=== PATIENT | female | born 1940 | race Caucasian/White ===

== ENCOUNTER → 2016-03-10 | Outpatient (CLI) | payer MEDICARE, BC ==
[~2016-03-10] MED LIST: CALTRATE-600 W600 MG PO; ELMIRON 10100 MG/CA1 PO; FISH OIL1 IU PO; FOSAMAX 70MG TA70 MG PO
[2016-03-10 09:46] LABS: ALBUMIN 4.3 gm/dL (3.5-5.0); BILIRUBIN,TOTAL 0.7 mg/dL (0.0-1.0); TOTAL PROTEIN 7.5 gm/dL (6.4-8.2)
[2016-03-10 10:08] LABS: BILIRUBIN,DIRECT 0.4 mg/dL (0.0-0.4); CREATININE, serum 0.94 mg/dL (0.52-1.25)
== END ==
LOC: COL.LAB 09:03 → COL.RAD 09:03
PROVIDERS: Nurse Practitioner
DX: N30.21 Other chronic cystitis with hematuria (principal); R31.0 Gross hematuria
CPT/HCPCS: Q9967

== ENCOUNTER → 2016-07-06 | Outpatient (CLI) | payer MEDICARE, BC | LOC: MC.RAD 11:26 | DX: Z12.31 Encounter for screening mammogram for malignant neoplasm of breast (principal) ==

== ENCOUNTER 2017-08-13 10:08 | Emergency (ER) | payer MEDICARE, BC ==
[~2017-08-13] VITALS: Ht 165.1 cm; Wt 59.1 kg
[2017-08-13 10:24] VITALS: TEMP 97.5
[2017-08-13] MEDS ORDERED: NORCO 325 MG-51 TAB PO (12:28)
[2017-08-13] MEDS ORDERED: CRUTCHES MC (12:28)
[2017-08-13 13:24] VITALS: BP 121/67; PULSE 79
== END 2017-08-13 13:24 | disposition home or self-care (01) ==
LOC: COL.ER 10:08
DX: S32.10XA Unspecified fracture of sacrum, initial encounter for closed fracture (principal); W07.XXXA Fall from chair, initial encounter; Y92.009 Unspecified place in unspecified non-institutional (private) residence as the place of occurrence of the external cause
CPT/HCPCS: J3010

== ENCOUNTER → 2018-08-30 | Outpatient (CLI) | payer MEDICARE, BC ==
[~2018-08-30] MED LIST changes: +AMITRIPTYLINE H50 M1 PO; +CRUTCHES MC; +DILAUDID 4MG TAB4 MG PO; +FORTICAL200 IU/ACT NS; +HCTZ12.5TAB PO; +LACTULOSE10 GM/153 PO; +LYRICA 75MG CAP75 MG PO; +MAXIMUM D310000 IU PO; +MOBIC 7.5MG7.5 MG PO; +NORCO 325 MG-51 TAB PO; +PEPCID 20MG TAB20 MG PO; +ROXICODONE 55 MG/TAB PO; +SYNTHROID0.075 MG/T PO; +ZOCOR 10MG10 MG PO
== END ==
LOC: MC.RAD 08:24
DX: Z12.31 Encounter for screening mammogram for malignant neoplasm of breast (principal)

== ENCOUNTER → 2019-09-04 | Outpatient (CLI) | payer MEDICARE, BC | LOC: MC.RAD 11:04 | DX: Z12.31 Encounter for screening mammogram for malignant neoplasm of breast (principal) ==

== ENCOUNTER → 2020-09-04 | Outpatient (CLI) | payer MEDICARE, BC | LOC: MC.RAD 07:48 | DX: Z12.31 Encounter for screening mammogram for malignant neoplasm of breast (principal); R92.1 Mammographic calcification found on diagnostic imaging of breast ==

== ENCOUNTER → 2020-09-10 | Outpatient (CLI) | payer MEDICARE, BC | LOC: MC.RAD 13:54 | DX: R92.0 Mammographic microcalcification found on diagnostic imaging of breast (principal) ==

== ENCOUNTER → 2021-09-11 | Outpatient (CLI) | payer MEDICARE, BC | LOC: MC.RAD 08:50 | DX: Z12.31 Encounter for screening mammogram for malignant neoplasm of breast (principal) ==

== ENCOUNTER → 2021-09-25 | Outpatient (CLI) | payer MEDICARE, BC ==
[~2021-09-25] MED LIST changes: +CRESTOR 10MG10 MG PO; +NORVASC2.5 MG PO; +OMEGA-31 SGL PO; +VISION FORMULA1 EAC1 PO
== END ==
LOC: COL.RAD 13:53
DX: N30.11 Interstitial cystitis (chronic) with hematuria (principal); N13.30 Unspecified hydronephrosis

== ENCOUNTER 2021-10-02 11:48 | Observation (INO) | payer MEDICARE, BC ==
[~2021-10-02] VITALS: Ht 165.1 cm; Wt 63.0 kg
[~2021-10-02 11:48] MED LIST changes: -CRESTOR 10MG10 MG PO; -NORVASC2.5 MG PO; -OMEGA-31 SGL PO; -VISION FORMULA1 EAC1 PO
[2021-10-02 12:10] LABS: BASO # 0.1 K/mm3 (0.0-0.2); BASO % 0.9 % (0.0-2.0); EOS # 0.2 K/mm3 (0.0-0.7); GRAN # 5.1 K/mm3 (1.4-6.5); GRAN % 66.9 % (42.2-75.2); HEMOGLOBIN 12.2 g/dl (12.5-16.0); LYMPH # 1.5 K/mm3 (1.2-3.4); LYMPH % 19.7 % (20.0-51.0); MEAN CELL VOLUME 88 fl (80.0-100.0); MEAN CORPUSCULAR HEMOGLOBIN 30 pg (27-31); MEAN CORPUSCULAR HGB CONC 34 g/dl (33.0-37.0); MEAN PLATELET VOLUME 9.5 fl (7.4-10.4); MONO # 0.7 K/mm3 (0.1-0.6); MONO % 9.2 % (1.7-9.3); PLATELET COUNT 264 K/mm3 (130-400); RED BLOOD COUNT 4.08 M/mm3 (4.10-5.30); REDCELL DISTRIBUTION WIDTH-CV 12.2 % (11.5-14.5)
[2021-10-02 12:13] LABS: HEMATOCRIT 35.9 % (37.0-47.0)
[2021-10-02 12:29] LABS: ALANINE AMINOTRANSFERASE 15 U/L (0-55); ALBUMIN 3.8 gm/dL (3.4-4.8); ALKALINE PHOSPHATASE 78 U/L (40-150); ANION GAP 11 mmol/L (7-16); AST,SGOT 18 U/L (5-34); BILIRUBIN,TOTAL 0.5 mg/dL (0.2-1.2); BLOOD UREA NITROGEN 21 mg/dL (10-20); CALCIUM 9.5 mg/dL (8.4-10.2); CARBON DIOXIDE 23 mmol/L (23-31); CHLORIDE 100 mmol/L (98-107); CREATININE, serum 0.97 mg/dL (0.57-1.11); GLUCOSE 97 mg/dL (70-99); LIPASE 32 U/L (8-78); POTASSIUM 3.5 mmol/L (3.5-4.5); SODIUM 134 mmol/L (136-145); TOTAL PROTEIN 6.9 gm/dL (6.2-8.1)
[2021-10-02 12:33] LABS: PARTIAL THROMBOPLASTIN TIME 33.3 SECONDS (26.0-37.0)
[2021-10-02 12:40] LABS: TROPONIN-I < 0.010 ng/mL (0.00-0.033)
[2021-10-02 16:07] VITALS: BP 150/66; PULSE 70; TEMP 97.6
--- NOTE | 2021-10-02 16:17 | NUR ---
Patient arrived to the unit by wheelchair, alert and oriented x 4, VSS, HTN. Denies chest pain at the moment. Assessment intake completed.
[2021-10-02] MEDS ORDERED: HCTZ12.5TAB PO (16:29)
[2021-10-02] MEDS ORDERED: ELMIRON 10100 MG/CA1 PO (16:31)
[2021-10-02] MEDS ORDERED: VISION FORMULA1 EAC1 PO (16:33)
[2021-10-02] MEDS ORDERED: OMEGA-31 SGL PO (16:35)
[2021-10-02] MEDS ORDERED: NORVASC2.5 MG PO (16:37)
[2021-10-02] MEDS ORDERED: CRESTOR 10MG10 MG PO (16:38)
[2021-10-02 16:39] LABS: CHOLESTEROL 164 mg/dL (0-199); HDL CHOLESTEROL 80 mg/dL (40-60); LDL CHOLESTEROL 74 mg/dL; MAGNESIUM 2.1 mg/dL (1.6-2.6); TRIGLYCERIDE 49 mg/dL (0-149)
[2021-10-02 16:48] LABS: TROPONIN-I < 0.010 ng/mL (0.00-0.033)
[2021-10-02 17:12] VITALS: BP 139/71; PULSE 66; TEMP 97.7
--- NOTE | 2021-10-02 18:22 | NUR ---
Patient is resting in bed, states she does not have chest pain. She is getting NS 75 ML/HR. Telemetry in place, NSR. Aware of being NPO at midnight. Report will be given to night RN.
[2021-10-02 20:00] VITALS: BP 148/74; PULSE 69; TEMP 97.8
--- NOTE | 2021-10-02 20:00 | NUR ---
THE PATIENT DENIES ANY PAIN, STATES THAT CHEST PAIN AND PRESSURE HAVE SINCE SUBSIDED. SHE STATES THAT SHE FEELS MUCH BETTER THAN WHEN SHE ARRIVED. ASSESSMENT COMPLETED. VSS. WILL CONTINUE TO MONITOR THROUGH THE NIGHT. NO OTHER CONCERNS.
[2021-10-02 23:56] VITALS: BP 119/66; PULSE 73; TEMP 97.7
[2021-10-03] VITALS (8 sets, daily range): BP systolic 102–145; BP diastolic 57–77; PULSE 76–83; TEMP 97.5–97.9
--- NOTE | 2021-10-03 08:00 | NUR ---
Patient is resting in bed, alert and oriented x 4, VSS, denies chest pain. States she just woke up because of the regular VS. Telemetry in place, NSR. Assessment completed, has been NPO from midnight. Awaiting for stress test. No other needs at this time. Call light within reach.
--- NOTE | 2021-10-03 11:50 | NUR ---
MARQUES met with the patient to discuss discharge plan. The patient lives in [place] with her , Tico (ph#[phone]). She reports independence with ADLs and has a walker available, if needed. The patient's PCP is Dr. Naomi Holloway and she receives her medications from [facility]. The patient has a DPOA-HC in EMR, but it is not signed or witnessed/notarized. It is not valid. SW notified the patient of this. She believes that they did get this finalized. The patient plans to return home with her upon discharge today. No additional needs at this time.
--- NOTE | 2021-10-03 13:40 | NUR ---
Patient and were provided with discharge information. All questions answered. Telemetry and IV access were discontinued. Pt was taken using a wheelchair to the exit by staff.
== END 2021-10-03 14:00 | disposition home or self-care (01) ==
LOC: COL.ER 11:48 → MEDICAL 14:13
PROVIDERS: Emergency Medicine; ADMIT Internal Medicine
DX: R07.9 Chest pain, unspecified (principal); E78.5 Hyperlipidemia, unspecified; E03.9 Hypothyroidism, unspecified; N30.10 Interstitial cystitis (chronic) without hematuria; I10 Essential (primary) hypertension; M81.0 Age-related osteoporosis without current pathological fracture; Z79.899 Other long term (current) drug therapy; Z79.890 Hormone replacement therapy; I08.1 Rheumatic disorders of both mitral and tricuspid valves
CPT/HCPCS: A9500; G0378; J1650; J2270; J2405; J2785; J7030

== ENCOUNTER 2021-11-17 14:06 | Emergency (ER) | payer MEDICARE, BC ==
[~2021-11-17] VITALS: Ht 165.1 cm; Wt 60.0 kg
[~2021-11-17 14:06] MED LIST changes: +CRESTOR 10MG10 MG PO; +NORVASC2.5 MG PO; +OMEGA-31 SGL PO; +VISION FORMULA1 EAC1 PO
[2021-11-17 15:00] VITALS: TEMP 97.8
[2021-11-17 18:41] VITALS: BP 143/79; PULSE 70
== END 2021-11-17 19:28 | disposition home or self-care (01) ==
LOC: COL.ER 14:06
DX: S22.32XA Fracture of one rib, left side, initial encounter for closed fracture (principal); S00.93XA Contusion of unspecified part of head, initial encounter; S20.02XA Contusion of left breast, initial encounter; R40.2412 Glasgow coma scale score 13-15, at arrival to emergency department; W18.09XA Striking against other object with subsequent fall, initial encounter; Y92.59 Other trade areas as the place of occurrence of the external cause; Y93.H2 Activity, gardening and landscaping
CPT/HCPCS: A9284

== ENCOUNTER → 2023-10-18 | Outpatient (CLI) | payer MEDICARE, BC | LOC: MC.RAD 05:33 | DX: Z12.31 Encounter for screening mammogram for malignant neoplasm of breast (principal) ==